=== PATIENT | female | born 1960 | race Two or more races ===

== ENCOUNTER 2025-07-16 19:06 | Emergency (ER) | payer MEDICARE, OTHER ==
[~2025-07-16] VITALS: Ht 157.5 cm; Wt 66.2 kg
[2025-07-16 19:06] VITALS: BP 124/71; TEMP 98.1; O2SAT 98
[2025-07-16 19:35] LABS: PLATELET COUNT (AUTO) 313 K/uL (150-450); RED BLOOD CELL COUNT(AUTO) 3.60 MIL/uL (4.0-5.2); RED CELL DISTRIBUTION WIDTH 13.9 % (11.5-15.0); WHITE BLOOD COUNT (AUTO) 5.7 K/uL (4.3-11.0)
[2025-07-16] MEDS ORDERED: MULT-213 PO (19:37)
[2025-07-16] MEDS ORDERED: OLAN15TA3 PO (19:37)
[2025-07-16] MEDS ORDERED: EMTR1TAB17 PO (19:37)
[2025-07-16] MEDS ORDERED: NA P133E RC (19:37)
[2025-07-16] MEDS ORDERED: ATOR10TA PO (19:37)
[2025-07-16] MEDS ORDERED: ERGO500093 PO (19:37)
[2025-07-16] MEDS ORDERED: BISA10SU11 RC (19:37)
[2025-07-16] MEDS ORDERED: ACET325T53 PO (19:37)
[2025-07-16] MEDS ORDERED: MAGN400O6 PO (19:37)
[2025-07-16] MEDS ORDERED: CRAN425C6 PO (19:37)
[2025-07-16] MEDS ORDERED: FERR325T24 PO (19:37)
[2025-07-16] MEDS ORDERED: DOLU50TA PO (19:37)
[2025-07-16 19:42] LABS: CALCIUM, SERUM 8.8 mg/dL (8.5-10.1); CREATININE 1.1 mg/dL (0.6-1.3); SODIUM SERUM 138 mmol/L (136-145); UREA NITROGEN, BLOOD 17 mg/dL (7-18)
[2025-07-16 19:48] LABS: ALCOHOL, BLOOD < 3 mg/dL (0-10); ASPARTATE AMINOTRANSFERASE 20 U/L (15-37); TOTAL PROTEIN, SERUM 7.8 g/dL (6.4-8.2)
[2025-07-16 20:03] LABS: APPEARANCE,URINE CLEAR (CLEAR); BLOOD, URINE Trace-intact Ery/uL (NEGATIVE); LEUKOCYTE ESTERASE ,URINE Negative (NEGATIVE); NITRITE, URINE NEGATIVE (NEGATIVE); UGLUCOSE Negative (NEGATIVE)
[2025-07-16 20:07] LABS: AMPHETAMINE, URINE NEGATIVE (NEGATIVE); BARBITURATE, URINE NEGATIVE (NEGATIVE); BENZODIAZEPINE, URINE NEGATIVE (NEGATIVE); CANNABINOID, URINE NEGATIVE (NEGATIVE); COCCAINE, URINE NEGATIVE (NEGATIVE); OPIATE, URINE NEGATIVE (NEGATIVE)
[2025-07-16 20:11] LABS: ADD URINE CULTURE NO; SQUAMOUS EPITHELIAL CELL,UR Few /HPF (None Seen)
== END 2025-07-17 00:39 | disposition short-term general hospital (02) ==
LOC: ER 19:08
DX: F20.9 Schizophrenia, unspecified (principal); Z79.624 Long term (current) use of inhibitors of nucleotide synthesis; Z79.899 Other long term (current) drug therapy; Z20.822 Contact with and (suspected) exposure to COVID-19
CPT/HCPCS: 36415; 80048-TC; 80076-TC; 81001; 85025-TC; G0480

== ENCOUNTER 2025-07-29 13:59 | Inpatient (IN) | payer MEDICARE ==
[~2025-07-29] VITALS: Ht 157.5 cm; Wt 66.2 kg
[~2025-07-29 13:59] MED LIST: ACET325T53 PO; ATOR10TA PO; BISA10SU11 RC; CRAN425C6 PO; DOLU50TA PO; EMTR1TAB17 PO; ERGO500093 PO; FERR325T24 PO; MAGN400O6 PO; MULT-213 PO; NA P133E RC; OLAN15TA3 PO
[2025-07-29 15:19] LABS: PLATELET COUNT (AUTO) 297 K/uL (150-450); RED BLOOD CELL COUNT(AUTO) 3.34 MIL/uL (4.0-5.2); RED CELL DISTRIBUTION WIDTH 13.7 % (11.5-15.0); WHITE BLOOD COUNT (AUTO) 5.1 K/uL (4.3-11.0)
[2025-07-29] MEDS ORDERED: MAG-151 PO (15:22)
[2025-07-29] MEDS ORDERED: ZOLP5TAB8 PO (15:22)
[2025-07-29] MEDS ORDERED: DIVA125C5 PO (15:22)
[2025-07-29] MEDS ORDERED: OLAN5TAB3 PO (15:22)
[2025-07-29] MEDS ORDERED: LORA-259 PO (15:22)
[2025-07-29 15:29] LABS: CALCIUM, SERUM 8.8 mg/dL (8.5-10.1); CREATININE 1.0 mg/dL (0.6-1.3); SODIUM SERUM 141 mmol/L (136-145); UREA NITROGEN, BLOOD 18 mg/dL (7-18)
[2025-07-29 15:36] LABS: ALCOHOL, BLOOD < 3 mg/dL (0-10); ASPARTATE AMINOTRANSFERASE 19 U/L (15-37); TOTAL PROTEIN, SERUM 7.2 g/dL (6.4-8.2)
[2025-07-29 19:56] LABS: APPEARANCE,URINE CLEAR (CLEAR); BLOOD, URINE NEGATIVE Ery/uL (NEGATIVE); LEUKOCYTE ESTERASE ,URINE 1+ (NEGATIVE); NITRITE, URINE NEGATIVE (NEGATIVE); UGLUCOSE NEGATIVE (NEGATIVE)
[2025-07-29 20:11] LABS: AMPHETAMINE, URINE NEGATIVE (NEGATIVE); BARBITURATE, URINE NEGATIVE (NEGATIVE); BENZODIAZEPINE, URINE NEGATIVE (NEGATIVE); CANNABINOID, URINE NEGATIVE (NEGATIVE); COCCAINE, URINE NEGATIVE (NEGATIVE); OPIATE, URINE NEGATIVE (NEGATIVE)
[2025-07-29 20:22] LABS: ADD URINE CULTURE YES
[2025-07-29 20:23] LABS: SQUAMOUS EPITHELIAL CELL,UR 0-2 /HPF (None Seen)
[2025-07-29] MEDS ORDERED: LORAZEPAM 0.5 MG TABLET PO PRN (20:30)
[2025-07-29] MEDS ORDERED: MAG HYDROX/AL HYDROX/SIMETH 30 ML UDC PO PRN (20:30)
[2025-07-29] MEDS ORDERED: MAGNESIUM HYDROXIDE 30 ML UDC PO PRN (20:30)
[2025-07-29] MEDS ORDERED: ACETAMINOPHEN 325 MG TABLET PO PRN (20:30)
[2025-07-29] MEDS ORDERED: LORAZEPAM 1 MG TABLET PO PRN (20:30)
[2025-07-29] MEDS ORDERED: ZOLPIDEM TARTRATE 5 MG TABLET PO PRN ×2 (20:30)
[2025-07-29] MEDS: BLOOD SUGAR DIAGNOSTIC 1 EACH STRIP IN ONE (21:03)
[2025-07-29 21:08] VITALS: BP 136/61; TEMP 98.1; O2SAT 94
[2025-07-30 01:36] VITALS: BP 136/61; TEMP 98.1
[2025-07-30 07:58] VITALS: BP 140/70; TEMP 99.1; O2SAT 95
[2025-07-30] MEDS: FERROUS SULFATE (325 MG) 325 MG/TAB TABLET PO SCH (08:22)
[2025-07-30] MEDS: MULTIVIT W/MINERALS 1 TAB TABLET PO SCH (08:23)
[2025-07-30 08:42] LABS: CREATININE 1.0 mg/dL (0.6-1.3)
[2025-07-30 08:43] LABS: ASPARTATE AMINOTRANSFERASE 23.0 U/L (15-37); CALCIUM, SERUM 8.8 mg/dL (8.5-10.1); CREATININE 1.1 mg/dL (0.6-1.3); SODIUM SERUM 144.0 mmol/L (136-145); TOTAL PROTEIN, SERUM 7.3 g/dL (6.4-8.2); UREA NITROGEN, BLOOD 17.0 mg/dL (7-18)
[2025-07-30 08:49] LABS: IRON, SERUM 58 ug/dl (50-175)
[2025-07-30 08:53] LABS: LDL 68.0 mg/dL (0-99)
[2025-07-30] MEDS: OLANZAPINE 10 MG VIAL IM ONE (09:45)
[2025-07-30 15:51] VITALS: BP 118/63; TEMP 98.6; O2SAT 100
[2025-07-30 20:14] VITALS: BP 113/67; TEMP 98.8; O2SAT 95
[2025-07-30] MEDS: ATORVASTATIN 10 MG TABLET PO SCH (21:14)
[2025-07-30] MEDS: LITHIUM CARBONATE (300 MG CAP) 300 MG CAPSULE PO SCH (21:14)
[2025-07-31 08:00] VITALS: BP 132/77; TEMP 97.9; O2SAT 96
[2025-07-31 16:00] VITALS: BP 122/75; TEMP 98; O2SAT 94
[2025-07-31 20:02] VITALS: BP 139/72; TEMP 98.4; O2SAT 95
[2025-08-01 08:00] VITALS: BP 128/98; TEMP 98.8; O2SAT 95
[2025-08-01] MEDS: TIVICAY 50 MG PO SCH (14:24)
[2025-08-01 16:00] VITALS: BP 111/92; TEMP 98; O2SAT 94
[2025-08-01 21:02] VITALS: BP 119/64; TEMP 97.9; O2SAT 98
[2025-08-02 07:59] VITALS: BP 103/66; TEMP 97.9; O2SAT 98
[2025-08-02 16:00] VITALS: BP 120/65; TEMP 98.1; O2SAT 95
[2025-08-02 20:00] VITALS: BP 129/78; TEMP 98.4; O2SAT 96
[2025-08-03 08:00] VITALS: BP 125/72; TEMP 98.2; O2SAT 95
[2025-08-03 16:00] VITALS: BP 114/59; TEMP 98.1; O2SAT 95
[2025-08-03 20:24] VITALS: BP 93/64; TEMP 98.1; O2SAT 96
[2025-08-04 08:00] VITALS: BP 117/60; TEMP 98.1; O2SAT 93
[2025-08-04 13:17] VITALS: O2SAT 95
[2025-08-04 16:00] VITALS: BP 101/76; TEMP 98.1; O2SAT 98
[2025-08-04 22:08] VITALS: BP 120/74; TEMP 98.4; O2SAT 96
[2025-08-05 08:00] VITALS: BP 112/65; TEMP 97.7; O2SAT 95
[2025-08-05 08:05] VITALS: BP 112/65; TEMP 97.7; O2SAT 95
[2025-08-05 16:00] VITALS: BP 103/57; TEMP 98.2; O2SAT 95
[2025-08-05 20:37] VITALS: BP 109/58; TEMP 98.2; O2SAT 93
[2025-08-06 08:00] VITALS: BP 135/70; TEMP 97.8; O2SAT 96
[2025-08-06 16:00] VITALS: BP 132/73; TEMP 98.2; O2SAT 95
[2025-08-06 16:04] VITALS: BP 132/73; TEMP 98.2; O2SAT 96
[2025-08-06 20:00] VITALS: BP 124/86; TEMP 98.6; O2SAT 95
[2025-08-07 08:00] VITALS: BP 109/67; TEMP 98; O2SAT 95
[2025-08-07 16:00] VITALS: BP 117/72; TEMP 98.1; O2SAT 96
[2025-08-07 20:57] VITALS: BP 114/58; TEMP 98; O2SAT 95
[2025-08-08 08:00] VITALS: BP 111/54; TEMP 97.8; O2SAT 93
[2025-08-08 15:00] VITALS: BP 107/63; TEMP 97.8; O2SAT 97
[2025-08-08 20:07] VITALS: BP 103/50; TEMP 97.8; O2SAT 92
[2025-08-09 08:00] VITALS: BP 89/46; TEMP 98.2; O2SAT 93
[2025-08-09 20:00] VITALS: BP 121/63; TEMP 98; O2SAT 96
[2025-08-09] MEDS: ATORVASTATIN 10 MG TABLET ONE (21:44)
[2025-08-10 08:00] VITALS: BP 123/63; TEMP 98.1; O2SAT 96
== END 2025-08-10 13:25 | DRG 885 ==
LOC: ER 14:03 → GPS 19:47
PROVIDERS: ADMIT Psychiatry & Neurology Psychiatry; ATTEND Nurse Practitioner Family
DX: F20.0 Paranoid schizophrenia (principal); G93.41 Metabolic encephalopathy; E44.1 Mild protein-calorie malnutrition; E88.09 Other disorders of plasma-protein metabolism, not elsewhere classified; F29 Unspecified psychosis not due to a substance or known physiological condition; D53.9 Nutritional anemia, unspecified; E78.5 Hyperlipidemia, unspecified; M19.90 Unspecified osteoarthritis, unspecified site; Z20.822 Contact with and (suspected) exposure to COVID-19; Z73.6 Limitation of activities due to disability; F25.0 Schizoaffective disorder, bipolar type; Z68.26 Body mass index [BMI] 26.0-26.9, adult
CPT/HCPCS: 36415; 80048-TC; 80053-TC; 80061-TC; 80076-TC; 80178-TC; 81001; 82565-TC; 82607-TC; 82728-TC; 82962-TC; 83540-TC; 84439-TC; 84443-TC; 85025-TC; 87081-TC; 87086-TC; 97110-TC; 97112-TC; 97116-TC; 97530-TC; G0480; J3490